=== PATIENT | male | born 1940 | race Caucasian/White ===

== ENCOUNTER 2023-10-07 07:43 | Outpatient (CLI) | payer MEDICARE, SELFPAY ==
--- NOTE | 2023-10-07 07:44 | NM_ITS ---
APPROVED REPORT Exam: Nuclear Stress Test Indication: HTN, JYPERLIPIDEMIA, SOB Patient Location: Outpatient Stress Tech: Emilia Martinez NM Tech:Bharti BalbuenaTAMMY RT (R)(N)(M) Ht: 5 ft 2 in Wt: 195 lbs HR: 52 bpm BP: 138/57 mmHg BSA: 1.89 m2 Rhythm: NSR TID: 0.87 BMI: 35.6 History: HTN, HYPERLIPIDEMIA, SOB Procedure: Patient received 0.4 mg of intravenous Lexiscan, resting heart rate 52 bpm, resting blood pressure 138/57 mmHg, with Lexiscan maximum heart rate achieved was 70 bpm which is % of the maximum predicted heart rate and blood pressure was 138/57 mmHg. With Lexiscan, patient denied any complaint of chest pain. Cardiac Stress and Resting SPECT Images: Cardiac Stress and Resting SPECT images were obtained using technetium 99m Myoview 31.2 mCi stress and 10.07 mCi at rest. Resting and stress imaging in supine and prone positions demonstrate a small-sized, mild, reversible perfusion defect in the LV apical wall. Gated imaging demonstrates normal global and regional LV systolic function. LVEF is calculated at 56%. Conclusion: Small-sized, mild, reversible perfusion defect in the LV apical wall. Findings are suggestive of mild reversible ischemia. Gated imaging demonstrates normal global and regional LV systolic function. LVEF is calculated at 56%. Electronically signed by : Kirsten Cheatham MD 10/11/2023 16:09:59
--- NOTE | 2023-10-07 07:58 | CA_ITS ---
APPROVED REPORT EXAM: Comprehensive 2D, Doppler, and color-flow Echocardiogram Water Pump Installer: Areli Fallon CRT Ht: 5 ft 4 in Wt: 196lbs BSA: 1.94 BP: 135/88 mmHg Indications: Shortness of Breath, CVA/TIA, Hypertension/HDD, loop recorder with battery 2D Dimensions LA Volume 53.50 mL LA Volume Index 26.90 mL/m2 (M/F) 16-34 M-Mode Dimensions RVDd 2.71 cm (0.9-2.6) LA Diam 3.32 cm (1.9-4.0) LVDd 4.52 cm (3.5-5.7) LVDs 2.39 cm (3.5-5.7) IVSd 1.55 cm (0.6-1.1) PWd 1.07 cm (0.6-1.1) EF (Teich) 78.60% FS 47.10% EDV (Teich) 93.40 mL TAPSE 2.26 (<1.7) ESV (Teich) 20.00 mL LV Diastology E Decel Time 150 (160-240 msec) E/A Ratio 4.96 MED A' 9.40 cm/s LAT A' 15.10 cm/s Aortic Valve AI PHT 565.00 ms AO Peak GR. 8.20 mmHg Mitral Valve MV E Max Jc. 83.0 (40-130 cm/s) MV A Velocity 17.0 (40-130 cm/s) E/A Ratio 4.96 MV PHT 44.0 ms Pulmonary Valve PV Peak Velocity 154.0 (50-150 cm/s) Tricuspid Valve TR P. Velocity 309.00 cm/s RAP Estimate 10.00 mmHg RVSP 48.30 mmHg Left Ventricle The left ventricle is normal size. The left ventricular systolic function is normal. The left ventricular ejection fraction is within the normal range. There is increased LV wall thickness. There is normal LV segmental wall motion. The left ventricular diastolic function is normal. LVEF is 55%. Right Ventricle Right ventricle is mildly dilated. The right ventricular systolic function is normal. Atria Left atrium is mildly dilated. Right atrium is mildly dilated. There is no Doppler evidence of interatrial shunt. Aortic Valve The aortic valve is mildly thickened. There is no aortic valvular stenosis. Mild aortic regurgitation. Mitral Valve The mitral valve is normal in structure. No evidence of mitral valve stenosis. Mild mitral regurgitation. Tricuspid Valve The tricuspid valve leaflets are thin and pliable. Mild tricuspid regurgitation. RVSP is 20-25 mmHg. Pulmonic Valve The pulmonary valve is normal in structure. Trace pulmonic regurgitation. Great Vessels The aortic root is normal in size. The ascending aorta is normal in size. IVC is normal in size and collapses >50% with inspiration. Pericardium There is no pericardial effusion. Other Information Study Quality: Fair Conclusion Normal biventricular systolic function. Mild RV dilation. Mild biatrial dilation. Mild AI, mild MR, mild TR. Electronically signed by : Kirsten Cheatham MD 10/11/2023 18:40:02
[2023-10-07] MEDS: SODIUM CHLORIDE 0.9% 10ML SYR (RAD ONLY) 10 ML IV ×2 (08:05→09:15)
[2023-10-07] MEDS: REGADENOSON 0.4MG/5ML SYRINGE 0.400000000000000022 MG IV (09:15)
--- NOTE | 2023-10-07 09:38 | CA_ITS ---
APPROVED REPORT Exam: Pharmacologic Technologist: Emilia Martinez Ht: 5 ft 4 in Wt: 196 lbs BSA: 1.94 m2 HR: 51 bpm BP: 138/57 mmHg Rhythm: NSR Indications: Dyspnea Medical History Medications: Amlodipine,,,,, Lisinopril,,,,, Atorvastatin,,,,, Citalopram,,,,, Famotidine,,,,, DONEPEZIL,,,,, BisOPROLOL Fumarate,,,,, Finasteride,,,,, Stress Test Details Test: LEXISCAN HR Resting HR: 52 bpm Max Heart Rate (APMHR): 137 bpm Max HR Achieved: 70 bpm Target HR (85% APMHR): 116 bpm % of APMHR: 51 Recovery HR: 58 bpm BP Resting BP: 138.0/57.0 mmHg Max BP: 138.0/57.0 mmHg Recovery BP: 122.0/63.0 mmHg ECG Resting ECG: Sinus bradycardia, rightward axis, PAC Stress ECG: No significant ST changes Arrhythmia: PACs, PVCs Clinical Exercise duration: 04:03 min Highest Stage Achieved: Stress ECG Conclusion Symptoms: None Arrhythmias/Ectopy: PACs, PVCs ST-T Changes: No significant ST changes. Conclusion: Unremarkable Lexiscan Stress. Myoview images reported separately. Test Summary REST . . . . . . . Resting REST 03:28 . . 52 . 138/ 57 . . Stage 1 . . . . . . . Myoview Injected Stage 1 01:00 . . 56 . . . . Stage 2 01:00 . . 68 . . . . Stage 3 01:00 . . 61 . 115/ 61 . . Stage 4 01:00 . . 60 . 125/ 63 . . Stage 4 01:03 . . 60 . 125/ 63 . Stop exercise at 04:03 RECOVERY 01:00 . . 63 . . . . RECOVERY 02:00 . . 57 . 123/ 61 . . RECOVERY 03:00 . . 59 . 122/ 63 . . RECOVERY 03:21 . . 61 . 122/ 63 . . Electronically signed by : Kirsten Cheatham MD 10/11/2023 16:06:24
[2023-10-07] MEDS: ISOTOPE MYOVIEW (PER STUDY) 1 DOSE IV (11:31)
== END 2023-10-07 23:59 | disposition home or self-care (01) ==
LOC: RAD 07:44
PROVIDERS: Visit Provider Physician Assistant
DX: R06.09 Other forms of dyspnea (principal); I63.9 Cerebral infarction, unspecified; I10 Essential (primary) hypertension; Z95.818 Presence of other cardiac implants and grafts
CPT/HCPCS: 78452; 93017; 93018; 93306; A9502; J2785

== ENCOUNTER 2023-11-25 08:31 | Day surgery (SDC) | payer MEDICARE, SELFPAY ==
[2023-11-25] VITALS (12 sets, daily range): BP systolic 99–128; BP diastolic 53–71; PULSE 48–61; RESP 15–18; TEMP 36.7; O2SAT 90–98; BMI 33.6
--- NOTE | 2023-11-25 07:09 | IR_ITS ---
APPROVED REPORT Patient Location: Outpatient PROCEDURES Left heart catheterization Left ventriculogram Selective coronary angiogram INDICATION Abnormal nuclear study, Angina pectoris Informed consent was obtained prior to the procedure. COMPLICATIONS NONE Estimated Blood Loss: LESS THAN 10 ML TECHNIQUE One percent lidocaine used to anesthetize the right anterior aspect of the wrist. The right radial artery was accessed via the Seldinger technique. A 6 [place] sheath was placed in the right radial artery. 2.5 mg of Verapamil, 800 mcg of nitroglycerin, 1mg Lidocaine and 5000 U Heparin were given through the arterial sheath. The papa catheter was also used to perform left heart catheterization, left ventriculogram and selective coronary angiogram. At the end of the procedure the sheath was removed good hemostasis was achieved using Traclet band, patient was transferred to the postop holding area in stable condition. 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 Risk factor modification with aggressive medical management Electronically signed by : Josh Moses MD 11/25/2023 13:01:20
--- NOTE | 2023-11-25 08:52 | SUR.PREOP ---
Escorted another patients visitor to waiting room and found this patient sitting in waiting room. Asked pt if we had registered for his procedure today and he stated No, im pre-registered educated pt that you still have to check in regardless of pre-registering or not. Pt escorted to outpatient registration to get registered.
[2023-11-25 09:05] LABS: Basophils # 0.1 K/mm3 (0-0.2); Basophils % 0.7 % (0.1-2.0); Eosinophils # 0.6 K/mm3 (0.0-0.4); Eosinophils % 6.1 % (0.1-12.0); Hematocrit 40.7 % (42.0-52.0); Hemoglobin 12.6 g/dL (14.1-18.0); Lymphocytes # 2.6 K/mm3 (0.7-4.5); Lymphocytes % 27.4 % (10-50); Mean Corpuscular HGB Conc 30.9 g/dL (31.8-35.4); Mean Corpuscular Volume 90.6 fl (80-94); Mean Platelet Volume 9.7 fl (7.4-10.4); Monocytes # 0.5 K/mm3 (0.1-1.0); Monocytes % 5.6 % (1.7-9.3); Neutrophils # 5.6 K/mm3 (1.8-7.8); Neutrophils % 60.1 % (37.0-80.0); Platelet Count 232 K/mm3 (142-424); Red Blood Count 4.49 M/mm3 (4.60-6.20); Red Cell Distribution Width 15.3 % (11.5-17.5); White Blood Count 9.3 K/mm3 (4.8-10.8)
[2023-11-25 09:15] LABS: Chloride 108 mmol/L (98-107); Sodium 143 mmol/L (136-145)
[2023-11-25 09:16] LABS: Potassium 4.2 mmoL/L (3.5-5.1)
[2023-11-25 09:19] LABS: Anion Gap 11.2 mEq/L (5-15); Blood Urea Nitrogen 18 mg/dl (9-20); Carbon Dioxide 28 mmol/L (22.0-30.0); Creatinine Clearance Estimated 50 mL/min (50-200); Estimated Glomerular Filt Rate 48 ml/min (>60); GFR (African American) 59 ML/MIN (>60); Glucose 104 mg/dl (74-100)
[2023-11-25] MEDS: 0.9 % SODIUM CHLORIDE 500 ML 25 ML IV (10:23)
[2023-11-25] MEDS: NITROGLYCERIN 800MCG/8ML SYR (CATH LAB) 800 MCG IA (10:23)
[2023-11-25] MEDS: VERAPAMIL 2.5MG/ML 2ML VIAL 2.5 MG IV (10:23)
[2023-11-25] MEDS: LIDOCAINE 1% 10ML MDV 20 ML IJ (10:23)
[2023-11-25] MEDS: HEPARIN 1,000 UNITS/500ML NS (CATH LAB) 3000 UNIT IV (10:23)
[2023-11-25] MEDS: HEPARIN 1,000 UNITS/ML 10ML VIAL (CATH LAB) 10000 UNIT IV (10:23)
[2023-11-25] MEDS: diphenhydrAMINE 50MG/ML VIAL 50 MG IV (10:23)
[2023-11-25] MEDS: FENTANYL 100MCG/2ML VIAL 50 MCG IV (10:42)
[2023-11-25] MEDS: MIDAZOLAM HCL 1MG/1ML 5ML VIAL 1 MG IV (10:42)
[2023-11-25] MEDS: IOPAMIDOL-370 (76%);100ML BOTTLE 50 ML IV (11:28)
== END 2023-11-25 13:59 | disposition home or self-care (01) ==
PROVIDERS: Visit Provider Internal Medicine
DX: R93.1 Abnormal findings on diagnostic imaging of heart and coronary circulation (principal); R06.09 Other forms of dyspnea; Z95.818 Presence of other cardiac implants and grafts; I10 Essential (primary) hypertension; Z79.899 Other long term (current) drug therapy; I25.118 Atherosclerotic heart disease of native coronary artery with other forms of angina pectoris; I69.354 Hemiplegia and hemiparesis following cerebral infarction affecting left non-dominant side
CPT/HCPCS: 80048; 85025; 93458; 99152; C1725; C1769; J1644; J2250; J3010; Q9967